=== PATIENT | female | born 1960 | race Caucasian/White ===

== ENCOUNTER → 2016-10-11 | Outpatient (CLI) | payer BC, OTHER ==
[~2016-10-11] MED LIST: MECLIZINE HCL12.5 MG PO; MICARDIS 20MG T20 M1 PO
== END ==
LOC: RAD 17:03
DX: S92.314A Nondisplaced fracture of first metatarsal bone, right foot, initial encounter for closed fracture (principal); M79.671 Pain in right foot

== ENCOUNTER → 2016-10-22 | Outpatient (CLI) | payer BC, OTHER | LOC: RAD 11:16 | DX: S92.354A Nondisplaced fracture of fifth metatarsal bone, right foot, initial encounter for closed fracture (principal); M25.571 Pain in right ankle and joints of right foot ==

== ENCOUNTER → 2016-10-22 | Outpatient (CLI) | payer BC, OTHER | LOC: RAD 15:38 | DX: Z12.31 Encounter for screening mammogram for malignant neoplasm of breast (principal) ==

== ENCOUNTER → 2020-08-02 | Outpatient (CLI) | payer BC, OTHER | LOC: RAD 07:27 | DX: Z12.31 Encounter for screening mammogram for malignant neoplasm of breast (principal) ==

== ENCOUNTER → 2021-08-07 | Outpatient (CLI) | payer BC, OTHER | LOC: RAD 09:54 | PROVIDERS: ATTEND Family Medicine | DX: Z12.31 Encounter for screening mammogram for malignant neoplasm of breast (principal); N64.89 Other specified disorders of breast ==